=== PATIENT | male | born 1980 | race Caucasian/White ===

== ENCOUNTER 2019-09-06 11:13 | Inpatient (IN) | payer SELFPAY ==
[~2019-09-06] VITALS: Ht 180.3 cm; Wt 74.8 kg
[2019-09-06] MEDS ORDERED: NORCO 5-325 TA1 EACH PO (11:40)
--- NOTE | 2019-09-06 16:22 | NUR ---
RECEIVED REPORT FROM [facility] RIBBON CLEANER BRIAN. PT TO SURGERY FROM ER AT 1610.
--- NOTE | 2019-09-06 16:22 | NUR ---
OKAY TO CALL PTS GIRLFRIEND SACHA WITH UPDATES PHONE #: [phone]
--- NOTE | 2019-09-06 18:57 | NUR ---
KUSH CALLED FOR UDATE ON PT STATUS. INFORMED HER THE PT HAD NOT ARRIVED TO THE FLOOR YET BUT WOULD HAVE THE PRIMARY NURSE CALL HER ONCE PT DOES ARRIVE AND GET SETTLED.
--- NOTE | 2019-09-06 19:00 | NUR ---
PT STILL IN OR AT SHIFT CHANGE.
--- NOTE | 2019-09-06 19:31 | NUR ---
09/06/191930 Susy Beltran 190-PATIENT ARRIVED TO PACU ON 10L MASK REACTIVE TO VERBAL STIMULI OPENS EYES MOVING ARMS NOT FOLLOWING COMMANDS. RESPOSITIONING SELF TO LEFT SIDE. SULAIMAN DRAIN TO RLQ SEROUSANGUINOUS DRAINAGE WILL EMPTY DRESSING HAS SATURATED ON GAUZE. STERI STRIPS IN PLACE TO ABDOMEN. NG TUBE TO LEFT NARE LCS. ST RR INCREASED. 1909-PATIENT REPOSITIONING SELF IN BED ORIENTED TO SITUATION AND PLACE. PATIENT ON 8L MASK RR EVEN. 1919-PATIENT ON RA REACHING FOR MASK. O2 SATS DECREASE TO 88% ENCOURAGED DEEP BREATHING. REPORTS "CAN BREATHE BETTER NOW" DENIES PAIN. PATIENT REPORTS HAS TO LIE ON SIDE DUE TO RIBS. PER DR. POOLE GAUZE PLACED OVER SULAIMAN DRAIN. HOB ELEVATED. DENIES NAUSEA. PATIENT PLACED ON 2L OXYMASK. O2 SAT INCREASED TO 93%
--- NOTE | 2019-09-06 19:55 | NUR ---
PT ARRIVES TO FLOOR VIA STRETCHER, PT ABLE TO SCOOT HIMSELF TO BED. PT CONNECTED TO CPOX. NG TO SUCTION. GONZALEZ CATH IN PLACE. PT ORIENTED TO UNIT AND POC. IV FLUSHED, WNL. PT DENIES FURTHER NEEDS, AGREES TO USE CALL LIGHT FOR NEEDS.
--- NOTE | 2019-09-06 20:10 | NUR ---
SHIFT REPORT RECIEVED FROM BRENDEN MARTINEZ. PT RESTING IN BED. NO NEEDS AT THIS TIME. CALL LIGHT IN REACH.
--- NOTE | 2019-09-06 22:03 | NUR ---
ASSESSMENT COMPLETED.LAP SITES WNL, DRY, SANGUINOUS BLOOD. SULAIMAN WNL, SANGUINOUS BLOOD. IV WNL, CDI, FLUSHED WELL. IV FLUIDS INFUSING. SCHEDULED MEDS PROVIDED. LUNGS CLEAR. BOWEL TONES HYPOACTIVE. GONZALEZ WNL, CLEAR, YELLOW URINE. ABD MILDLY DISTENDED, TENDER. NG WNL, SCANT BROWN OUTPUT. USLAIMAN SITE DRESSING CHANGED. PAIN 3/10, DENIES NEED FOR PAIN INTERVENTION. NO OTHER NEEDS AT THIS TIME. CALL LIGHT IN REACH.
--- NOTE | 2019-09-06 23:09 | NUR ---
PT STATES HE HAS 5/10 ABD PAIN. PRN PAIN MED PROVIDED. NO OTHER NEEDS AT THIS TIME. CALL LIGHT IN REACH.
--- NOTE | 2019-09-06 23:27 | NUR ---
PT RESTING IN BED, EYES CLOSED. RR EVEN, UNLABORED. CPOX 96% RA. IV FLUIDS INFUSING. NG LOW INTERMITTENT. LISA WNL. CALL LIGHT IN REACH.
--- NOTE | 2019-09-07 01:15 | NUR ---
PT RESTING IN BED, EYES CLOSED. RR EVEN, UNLABORED. IV FLUIDS INFUSING PER ORDER. CALL LIGHT IN REACH.
--- NOTE | 2019-09-07 01:55 | NUR ---
SCHEDULED MED PROVIDED. PT REPORTS 4/10 PAIN BUT DECLINE PAIN MANAGEMENT INERVENTIONS INCLUDING HEAT/COLD PACKS, WARM BLANKETS, MEDICATION AND REPOSITIONING. VS AND I&O COMPLETED BY PRINCESS STALEY. SULAIMAN AND LISA MEDINAIED. NO OTHER NEEDS. CALL LIGHT IN REACH.
--- NOTE | 2019-09-07 03:54 | NUR ---
PT RESTING IN BED, EYES CLOSED. RR EVEN, UNLABORED. IV FLUIDS INFUSING PER ORDER. CALL LIGHT IN REACH.
--- NOTE | 2019-09-07 05:36 | NUR ---
PT CALLS TO STATE HE IS IN 5/10 PAIN. PRN PAIN MEDS PROVIDED. ASSESSMENT COMPLETED. SITES WNL, DRY SANGUINOUS. GODFREY WNL, SANGUINOUS. PT PAIN ALSO IN BACK AND LEFT SHOULDER. PT DENIES PASSING GAS YET. BOWEL TONES ACTIVE. GONZALEZ WNL, YELLOW URINE. NG LOW INTERMITENT WITH SCANT, BROWN DRAINAGE. PT REPORTS THROAT IRRITATION FROM NG, LEMON SWABS PROVIDED.SCDs IN PLACE. IV WNL, CDI, FLUSHED WELL. LUNG CLEAR. ABD SOFT, TENDER. NO OTHER NEEDS AT THIS TIME. CALL LIGHT IN REACH.
--- NOTE | 2019-09-07 06:07 | NUR ---
SCHEDULED MED PROVIDED. VS AND I&O COMPLETED. ICE CHIPS PROVIDED WITH THE UNDERSTANDING TO SPIT OUT WATER TO HELP WITH THROAT IRRITATION. NO OTHER NEEDS AT THIS TIME. CALL LIGHT IN REACH.
--- NOTE | 2019-09-07 07:15 | NUR ---
Report received, orders acknowledged. Patient laying in bed, rouses easily to voice. NG tube connected to LIWS. Patient reports pain of 5/10, which is acceptable. Denies nausea. No needs at this time, call light within reach.
--- NOTE | 2019-09-07 08:45 | NUR ---
Patient laying in bed with eyes closed, rouses easily to voice. AM medications administered, assessment complete. Patient reports pain of 7/10, prn pain medication given (see MAR). NG tube in place connnected to LIWS. Patient abdomen tender with active bowel tones in all four quadrants. Lap sites covered with steri strips. Jez drain in place on RLQ, draining serosanguinous fluid. Ice chips refreshed, patient denies further needs at this time. Call light within reach.
--- NOTE | 2019-09-07 09:47 | NUR ---
PATIENT IN BED. DR IN ROOM. CALL LIGHT IN REACH. NO FURTHER NEEDS AT THIS TIME.
--- NOTE | 2019-09-07 10:00 | NUR ---
Patient reports pain of 5/10, prn pain medication given (see MAR). Kevin D/C'd, NG tube D/C'd. D5LR infusing at 100 mls/hr. Patient denies further needs at this time. Call light within reach.
--- NOTE | 2019-09-07 11:00 | NUR ---
Patient up ambulating hallway X2. Pillow to splint abdomen, fluids running at 100 mls/hr. Patient reports increased pain of 8/10 after ambulation but states "the movement of getting up and down from bed is what hurts the most." Plan to order clear liquid tray since NG tube removed, will monitor how patient tolerates. Ice pack provided for right shoulder, which patient states "it hurts, feels like gas is up there." Denies further needs at this time, call light within reach.
--- NOTE | 2019-09-07 12:11 | OR ---
[facility] [address] [place], [place] [address] Signed DATE OF OPERATION: 09/06/2019 SURGEON: Isamar Poole MD PREOPERATIVE DIAGNOSIS: Perforated peptic ulcer. POSTOPERATIVE DIAGNOSIS: Perforated duodenal ulcer, bulbar portion at pylorus. PROCEDURE: 1. Laparoscopic peritoneal lavage and drainage. 2. Laparoscopic Jesus patch (application if omental pedicle). ANESTHESIA: General endotracheal, Isamar Preston CRNA, and local 10 mL of 0.25% Marcaine with epinephrine. INDICATION: This 38-year-old white man has had epigastric pain for several weeks, suspicious of possible ulceration. He did take Tums, which was of no benefit and decided to take a home remedy of capsaicin pills. He had the onset of very severe pain today and presented to the emergency room, where he was evaluated by Dr. Adithya Edmonds, showing peritonitis and a CT scan performed which showed findings highly consistent with perforated ulcer. My review shows peritoneal fluid, particularly in the right paracolic gutter and pelvis and in the periduodenal area. He has been fluid resuscitated, given broad-spectrum antibiotic, meropenem and is to undergo laparoscopy and possible laparotomy for remedy of perforated viscus, most likely duodenal ulcer. The risks of bleeding, infection, need for open procedure, and other unforeseen complications were reviewed with him in detail. He understands and wished to proceed. Of special note, the patient does smoke. He has no documented history of ulcer in the past. He has no family history of gastric cancer. FINDINGS: Significant peritonitis was noted of the abdominal wall and fibrinous bile-stained debris noted along the paracolic gutter and down into the pelvis. Similar staining was noted of the undersurface of the liver and the gallbladder. He was ultimately found indeed to have a perforated duodenal ulcer, which appeared to be at the pylorus itself in the anterior superior aspect. Ultimately a Jesus patch was applied after Electronically Signed By: ISAAMR POOLE MD 09/07/19 1211 PATIENT NAME: ROSCOE AGUILERA OPERATIVE REPORT DATE OF : 82 REPORT #: [id number] PHYSICIAN: ISAMAR POOLE MD PCP: NO PRIMARY CARE PHYSICIAN REPORT IS CONFIDENTIAL AND NOT TO BE RELEASED WITHOUT AUTHORIZATION [facility] [address] [place] [id number] Signed mobilization of a viable omental pedicle from omental graft. The peritoneal cavity was copiously irrigated free of the fibrinous exudate, debris, and bile. A leak test showed no sign of air leak at the site of the repair. The operation was difficult. DESCRIPTION OF PROCEDURE: The patient was brought to the operating room and given a general endotracheal anesthetic. I passed a nasogastric tube in the emergency room as staff was unable to do so. Stomach was evacuated prior to operation. He underwent intubation without incident. Preoperative antibiotic, meropenem was given. Sequential compression device stockings were used and Pepcid intravenously administered. The abdomen was clipped and prepared with a chlorhexidine solution after placement of a Kevin catheter. An infraumbilical incision was made and using an open Di cannula technique, pneumoperitoneum was achieved to a level of 14 mmHg with carbon dioxide gas. Intraabdominal inspection showed considerable inflammatory changes in the peritoneal cavity including fibrinous exudate, which was bile-stained along the right paracolic gutter and over the liver and in the region of the gallbladder. A 10 mm epigastric port was placed and ultimately 2 separate 5 mm ports in the right midclavicular and right anterior axillary line. Gentle irrigation was undertaken in the upper abdomen. There was adherent omentum in the subhepatic space. This was gently withdrawn and revealed was a perforated duodenum in the region of the pylorus itself. The defect was probably 5 mm to 10 mm at most. Free flow of bile was noted from that site. Irrigation was undertaken to assess the viability of the tissue. He did have edema and some stiffness of the duodenum itself, as would be expected. The tissue appeared viable to hold suture however. The gallbladder was elevated cephalad and retracted and fixed into place to provide better exposure of the duodenum. Attention was turned toward providing for an omental pedicle for Jesus patch. This was carefully done by mobilizing a segment of the omentum attached to the greater curvature of the stomach. Care was taken to mobilize enough where there would be no tension on a Jesus patch repair of the duodenal defect. Using a laparoscopic technique of 0 silk sutures, sutures were placed on each side of the perforation. The omental pedicle graft was placed directly over the defect and the sutures secured laparoscopically. Additional leakage was noted and therefore 2 additional sutures were used to apply the omentum more fully. This appeared to completely occlude the leak. Notably, the omentum itself was within the defect. The defect was not closed and a true Jesus patch was applied. Electronically Signed By: ISAMAR POOLE MD 09/07/19 1211 PATIENT NAME: ROSCOE AGUILERA OPERATIVE REPORT DATE OF : 82 REPORT #: [id number] PHYSICIAN: ISAMAR POOLE MD PCP: NO PRIMARY CARE PHYSICIAN REPORT IS CONFIDENTIAL AND NOT TO BE RELEASED WITHOUT AUTHORIZATION [facility] [address] [place] [address] [place], [place] [address] Signed Irrigation was undertaken more fully. There appeared to be no evidence of bile leak. The upper abdomen was submerged in saline and the director of volunteer services applied multiple syringes of air through the nasogastric tube, distending the stomach quite markedly as expected. There was no evidence of leak at the perforation site and the repair was considered complete. The nasogastric tube was returned to suction and more irrigation and lavage of the abdominal cavity was undertaken freeing the fibrinous peel particularly along the right paracolic gutter and the pelvis more fully. Through the right-sided trocar site, a 7 mm flat Jez drain was placed in the subhepatic space. Retraction was taken off the gallbladder, it was unharmed and although inflamed secondarily did not appear to have a primary problem itself. The drain was secured to the skin with nylon suture. It was later attached to bulb suction. Withdrawal of the trocars showed no sign of bleeding. The infraumbilical fascial incision was reapproximated with interrupted 0 Vicryl suture. The skin was then closed with interrupted 3-0 Vicryl. Steri-Strips were applied. A 10 mL of 0.25% Marcaine with epinephrine was injected into the fascial layer at the trocar sites. The patient was ultimately extubated and per COVID-19 protocol remained in the operating room for 14 minutes post extubation. The operation was rather prolong, complicated, and difficult. It was accomplished safely and with good clinical result. MD CRISTOBAL Rivera/EMERY /[id number] cc: Adithya Edmonds MD Copies: ~ Electronically Signed By: ISAMAR POOLE MD 09/07/19 1211 PATIENT NAME: ALEROSCOE OPERATIVE REPORT DATE OF : 82 REPORT #: [id number] PHYSICIAN: ISAMAR POOLE MD PCP: NO PRIMARY CARE PHYSICIAN REPORT IS CONFIDENTIAL AND NOT TO BE RELEASED WITHOUT AUTHORIZATION
--- NOTE | 2019-09-07 12:11 | HP ---
[facility] [address] [place], [place] [address] Signed ADMISSION DATE: 09/06/2019 TIME: 3:40 p.m. PROBLEM: Probable perforated duodenal ulcer. HISTORY OF PRESENT ILLNESS: This 38-year-old white man, who has had persistent epigastric burning-type pain for a number of months. He is under a fair amount of stress for the past 7 months, having lost his home and getting divorce. He lives in the [facility] now with his parents. He tried a Lithuanian home remedy for ulcer treatment, which included cayenne pepper tablets. This did not help him. He had previously tried Tums. At about 2 o'clock today, he said he had rather severe and unrelenting epigastric pain. He presented to the emergency room, was evaluated by Dr. Edmonds, where he was found to have a white count of 22,000 and marked tenderness of the abdomen. A CT scan was performed, which showed free air and findings highly suggestive of a perforated ulcer. Though it was initially interpreted as a "gastric ulcer," my review shows it likely to be a pyloric perforation at the pylorus itself. His other medical issues include history of right inguinal hernia repair in the past. He does smoke on a daily basis. He is not known to have ulcer disease in the past. 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 He has no children. He is in the process of a divorce. PHYSICAL EXAMINATION: GENERAL: Relatively thin white man, who looks quite uncomfortable. HEENT: Mucous membranes are slightly dry. Trachea is midline. He is receiving IV fluids and soon to get IV antibiotics. CHEST: Shows no evidence of tachypnea. ABDOMEN: He has marked tenderness in the epigastric area. EXTREMITIES: Show no clubbing, cyanosis, or edema. LABORATORY DATA: White count is 22,000. Other labs are appeared reasonably normal. I have reviewed the CT scan in detail, which confirms fluid in the abdomen, but also an edematous pylorus, some periduodenal air, a distended gallbladder, and free air near the end of the duodenum. This is in the coronal view. The axial views show free air lateral and Electronically Signed By: ISAMAR POOLE MD 09/07/19 1211 PATIENT NAME: ROSCOE AGUILERA HISTORY AND PHYSICAL DATE OF : 82 REPORT #: [id number] PHYSICIAN: ISAMAR POOLE MD PCP: NO PRIMARY CARE PHYSICIAN REPORT IS CONFIDENTIAL AND NOT TO BE RELEASED WITHOUT AUTHORIZATION [facility] [address] [place], [place] [address] Signed inferior to the gallbladder fossa, edema of the antrum of the stomach, some gastric contents. ASSESSMENT: The patient has perforated ulcer, likely related to pyloric channel ulcer. His rationale for taking cayenne pepper tablets for remedy is uncertain, but almost certainly a perforation as noted as free air is noted beneath the liver edge and an area suggestive of perforated ulcer is noted. I would recommend laparoscopy, evaluation for perforated duodenal ulcer and likely a Jesus patch if that is the source of the problem. If this represents actually a perforated gastric ulcer proper, he will need a laparotomy and other remedy. The risks of bleeding, infection, need for open procedure, need for other indicated procedures reviewed in detail. He understands and wished to proceed. I have told him I will attempt to pass a nasogastric tube as it has been unsuccessful in the emergency room. 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 If necessary, an orogastric tube might be needed. MD CRISTOBAL Rivera/GABRIELLAL /[id number] cc: Adithya Edmonds MD Copies: ~ Electronically Signed By: ISAMAR POOLE MD 09/07/19 1211 PATIENT NAME: ROSCOE AGUILERA HISTORY AND PHYSICAL DATE OF : 82 REPORT #: [id number] PHYSICIAN: ISAMAR POOLE MD PCP: NO PRIMARY CARE PHYSICIAN REPORT IS CONFIDENTIAL AND NOT TO BE RELEASED WITHOUT AUTHORIZATION
--- NOTE | 2019-09-07 13:00 | NUR ---
Patient ambulating hallways independently with steady gait, fluids infusing.
--- NOTE | 2019-09-07 14:15 | NUR ---
Patient reports pain of 7/10 after ambulation, prn pain medication (see MAR). Denies further needs at this time, call light within reach.
--- NOTE | 2019-09-07 14:30 | NUR ---
MED REC COMPLETED
--- NOTE | 2019-09-07 14:32 | NUR ---
PATIENT UP TO BATHROOM AND BACK TO BED, IND. PATIENT COMPLAINING OF PAIN, RN NOTIFED. CALL LIGHT IN REACH. NO FURTHER NEEDS AT THIS TIME.
--- NOTE | 2019-09-07 15:46 | NUR ---
Pt resting in his bed and he denies any needs at this time and states his pain is tolerable and needs nothing for it.
--- NOTE | 2019-09-07 16:45 | NUR ---
Patient reports pain of 7/10, prn pain medication given. Patient reports feeling anxious, increased respiratory rate in the 20's. Dr. Garcia notified of patient's anxiety. Orders acknowledged.
--- NOTE | 2019-09-07 18:02 | NUR ---
Patient laying in bed watching tv. Fluids running at 100 mls/hr. Patient reports nausea relieved from medication, pain remains a 5/10 but is tolerable. Denies needs at this time, call light within reach.
--- NOTE | 2019-09-07 18:35 | NUR ---
PATIENT IN BED RESTING, RN IN ROOM. CALL LIGHT IN REACH. NO FURTHER NEEDS AT THIS TIME.
--- NOTE | 2019-09-07 18:38 | NUR ---
Patient reports pain of 7/10, prn pain medication given. Prn anti-anxiety medication given. Patient denies further needs, call light within reach.
--- NOTE | 2019-09-07 19:46 | NUR ---
REPORT RECEIVED FROM YAMILET CASTELLANOS RN. PT LYING IN BED RESTING WITH EYES CLOSED, NAD. SPO2 94% ON RA, RR EVEN AND UNLABORED. IVF INFUSING. CALL LIGHT IN REACH. WHITE BOARD UPDATED.
--- NOTE | 2019-09-07 20:49 | NUR ---
STRAWHAT SIZER ROUNDING NOTE. PT UP TO USE THE BATHROOM, REPORTS INCREASED PAIN, REQUESTS PRN PAIN MEDICATION, SEE EMAR. PT DENIES QUESTIONS OR CONCERNS AT THIS TIME. CALL LIGHT IN REACH. WHITE BOARD UPDATED.
--- NOTE | 2019-09-07 22:10 | NUR ---
CALL LIGHT ANSWERED. PT WALKING BACK TO BED FROM BR INDEPENDENTLY. PT REPORTING 7/10 ABD PAIN AND HAVING "A LOT" OF ANXIETY. PT FRUSTRATED STATING "NOTHING YOU GUYS ARE DOING IS FUCKING HELPING ME, I'M LEAVING TOMORROW". PT ALSO STATES THAT HE WAS FRUSTRATED WITH THIS RN BECAUSE HE WAS NOT AWAKENED TO RECEIVE PRN MORPHINE. THIS RN ATTEMPTED TO EXPLAIN THAT WHILE PAIN CONTROL IS IMPORTANT TO HIS HEALING, HE WOULD NEED TO REQUEST PRN NEEDED AND THAT IV MORPHINE WAS NOT SCHEDULED. PT STATES "I CAN HAVE IT EVERY THIRTY MINUTES BUT I HAVE BEEN PUSHING IT OUT FOR OVER AN HOUR". PT ALSO STATES THAT NURSING STAFF COMES IN AND "DOES WHAT EVER THEY FUCKING WANT WITHOUT EXPLAINING IT TO ME". THIS RN AT BEDSIDE TO TALK TO AND REASSURE PT, QUESTIONS ANSWERED. ANTI-ANXIETY AND PRN PAIN MEDICATION REQUESTED. PIV INFILTRATED. DC'D WNL, TIP IN TACT. TWO ATTEMPTS TO PLACE NEW PIV BY THIS RN. [employer] CALLED.
--- NOTE | 2019-09-07 23:30 | NUR ---
PRN ANTI-ANXIETY AND PRN PAIN GIVEN PER REQUEST. EVENING ASSESSMENT COMPLETE. SCHEDULED MEDS GIVEN AT THIS TIME. XIMENA DRAIN EMPTIED OF 50 ML SEROSANGUINOUS DRAINAGE. LAP SITES INTACT, NO REDNESS OR WARMTH NOTED. BOWEL TONES ACTIVE. PT REPORTS HE HAS PASSED GAS. C/O UPPER LEFT SHOULDER PAIN CAUSED "FROM THE GAS DURING SURGERY", REFUSES TO AMB AT THIS TIME. IV ABX INFUSING. PT REQUESTING TO NOT BE DISTRUBED FOR A WHILE HE HAS "NOT SLEPT SINCE HE GOT HERE". INSTRUCTED PT TO USE NURSE CALL LIGHT FOR ANY NEEDS.
--- NOTE | 2019-09-08 01:25 | NUR ---
PT RESTING IN BED WITH EYES CLOSED, NAD. RESPIRATIONS EVEN AND UNLABORED. CALL LIGHT IN REACH.
--- NOTE | 2019-09-08 03:30 | NUR ---
IV ABX COMPLETE. PT REQUESTING PRN FOR ABD PAIN. MEDICATED PER ORDER. PT UP TO BR WITH MINIMAL ASSIST TO VOID 450 ML CL YELLOW URINE. BACK TO BED, FATOU WELL. SCD'S APPLIED. PT REQUESTING PRN FOR ANXIETY HE WILL NOT BE ABLE TO SLEEP WITH SCD'S ON AND THAT WILL INCREASE HIS ANXIETY. INFORMED PT HE IS ABLE TO REFUSE ANY TREATMENT, PT STATES HE "WANTS TO BE A GOOD PATIENT". NO FURTHER NEEDS AT THIS TIME. CALL LIGHT IN REACH.
--- NOTE | 2019-09-08 04:23 | NUR ---
PT LYING IN BED WITH EYES CLOSED, APPEARS TO BE SLEEPING. RESPIRATIONS EVEN AND UNLABORED. CALL LIGHT IN REACH
--- NOTE | 2019-09-08 06:27 | NUR ---
PT UP TO BR WITH LITTLE ASSIST. BACK TO BED, FATOU FAIR. PT HAD ABOUT 50 ML BILE COLORED EMESIS. PRN N/V GIVEN. MEDICATED FOR 7/10 ABD PAIN. 30 ML EMPTIED FROM XIMENA DRAIN. DRAINAGE NOTED TO HAVE A CLOUDY, YELLOW TINGE.
--- NOTE | 2019-09-08 06:47 | NUR ---
DR. POOLE CALLED TO UPDATE ON CHANGE IN COLOR OF XIMENA DRAINAGE WELL PT'S PAIN AND ANXIETY. NEW TELEPHONE ORDERS RECEIVED, VERIFIED WITH READ BACK METHOD.
--- NOTE | 2019-09-08 07:00 | NUR ---
Report received, orders acknowledged.
--- NOTE | 2019-09-08 07:15 | NUR ---
Lab in room to draw blood. IV toradol given. Patient laying in bed with pillow over face during blood draw. Denies needs at this time, call light within reach.
--- NOTE | 2019-09-08 09:15 | NUR ---
Patient up to toilet, voiding quantity sufficient. SULAIMAN drain emptied, 30 mls of serosanguinous fluid. AM medications given, vital signs taken. Assessment complete. Patient reports pain in abdomen is a 4/10, which is acceptable. Denies nausea. LR infusing at 100 mls/hr. New linens provided. Patient drinking chocolate ensure due to poor appetite. Denies further needs at this time, call light within reach.
--- NOTE | 2019-09-08 12:00 | NUR ---
Patient sleeping in bed, respirations even and unlabored. Rouses easily to voice. Denies lunch order, would like to continue sleeping. Request is obliged. Call light within reach.
--- NOTE | 2019-09-08 13:30 | NUR ---
Dr. Garcia in room to discuss POC with patient.
--- NOTE | 2019-09-08 13:45 | NUR ---
Patient stating desire to leave hospital AMA. Patient is highly anxious, with increased respirations. Patient states "I'm out of here" and puts hat on. Dr Garcia offers to speak with support system and emphasizes importance of patient staying one more night to heal. 2mg PO ativan given. Patient agreeable to staying in hospital at moment. 1415 - grinding supervisor in patient room to speak with patient regarding desire to leave AMA. POC developed with patient with cluster care and minimal interruptions during stay. Patient agreeable to this POC.
--- NOTE | 2019-09-08 15:19 | NUR ---
AFTER PATIENT TOOK A SHOWER HE WALKED 2 LAPS AROUND [facility].
--- NOTE | 2019-09-08 17:26 | NUR ---
Patient sleeping in bed, respirations even and unlabored. Call light within reach.
--- NOTE | 2019-09-08 17:45 | NUR ---
Patient sleeping in bed with lights off and blinds drawn. Rouses easily to voice. PM medications given, vital signs taken. Patient reports pain of 5/10, prn pain medication given (see MAR). POC for the night discussed with patient, will relay patient's wishes to oncoming RN. Denies further needs at this time, call light within reach.
--- NOTE | 2019-09-08 19:33 | NUR ---
REPORT RECEIVED FROM DAY SHIFT RN. PT LYING IN BED, ALERT AND ORIENTED. PT IS WEARING STREET CLOTHES. FULL LIQUID TRAY PROVIDED. NO FURTHER NEEDS AT THIS TIME. CALL LIGHT IN REACH.
--- NOTE | 2019-09-08 20:10 | NUR ---
IN TO PT ROOM TO ADMINISTER SCHEDULED MED. PT IN BED WITH HAT OVER FACE, RESTING. RESPIRATIONS EVEN AND UNLABORED. PT NOT DISTURBED AT THIS TIME.
--- NOTE | 2019-09-08 21:10 | NUR ---
IN TO ADMINISTER MEDS. DISCUSSED WITH PT HIS EXPECTATIONS OF CARE FOR THE EVENING. AGREED TO MINIMALLY DISTURB PT. PT AGREED TO USE NURSE CALL LIGHT FOR PAIN MEDICATION. ASSESSMENT COMPLETE. I&O COMPLETE. LAP SITES INTACT, NO REDNESS OR SWELLING NOTED. XIMENA DRAIN EMPTIED OF SEROSANGUINOUS DRAINAGE. PT REMAINS IN STREET CLOTHES, REFUSED HOSPITAL PANTS. PRN GIVEN FOR ANXIETY. REFUSED PRN PAIN MEDICATIONS AT THIS TIME. FRESH WATER GIVEN. NO FURTHER NEEDS. CALL LIGHT IN REACH.
--- NOTE | 2019-09-08 23:15 | NUR ---
REST OF EVENING MEDS ADMINISTERED. PRN GIVEN FOR ABD PAIN. PT DENIES FURTHER NEEDS. CALL LIGHT IN REACH.
--- NOTE | 2019-09-09 03:09 | NUR ---
SCHEDULED MEDS ADMINISTERED. PRN GIVEN FOR ANXIETY AND C/O 5/10 ABD PAIN. XIMENA DRAIN EMPTIED. FRESH WATER GIVEN.
--- NOTE | 2019-09-09 06:36 | NUR ---
PT RESTING IN BED WITH HAT OVER FACE. PRN GIVEN FOR ABD PAIN. XIMENA DRAIN EMPTIED. ASSESSMENT DEFERRED. PT DENIES FURTHER NEEDS. CALL LIGHT IN REACH.
--- NOTE | 2019-09-09 08:21 | NUR ---
PT AWKAE AND ALLOWED STAFF TO COMPLETE ASSESSMENT, PT IS DRESS IN PERSOANL CLOTHING, SULAIMAN DRAIN REMAIN INTACK AND DRAINING SS FLUIDED. PLACED NICOTINE PATCH ON PT AND GAVE 2MG PO ATAVIN. PT IS UP AND ABOUT IN THE ROOM, TALKING TO SELF AND IS WILLING TO ANSWER QUESTIONS.
--- NOTE | 2019-09-09 08:25 | NUR ---
PT DOES NOT WANT ANY BKF AT THIS TIME, BUT IS TAKING PO WATER WITH NO ICE.
[2019-09-09] MEDS ORDERED: METRONIDAZOLE250 MG PO (08:44)
[2019-09-09] MEDS ORDERED: AMOXICILLIN500 MG PO (08:44)
[2019-09-09] MEDS ORDERED: NICOTINE PATCH1 EAC1 TD (08:44)
[2019-09-09] MEDS ORDERED: OXYCODON-ACETA1 EAC2 PO (08:45)
[2019-09-09] MEDS ORDERED: SUCRALFATE1 GM PT (08:45)
[2019-09-09] MEDS ORDERED: PEPTO-BISMOL262 MG PO (08:45)
[2019-09-09] MEDS ORDERED: TYLENOL EXTRA500 MG PO (08:45)
--- NOTE | 2019-09-09 08:48 | NUR ---
DR POOLE INTO SEE PT AND DISCHARGE TO HOME ORDERS RECEIVED. DR NOBLES REMOVED SULAIMAN DRAIN WITHOUT ANY ISSUES.
--- NOTE | 2019-09-09 08:58 | NUR ---
PT STATES THAT HIS GIRLFREIND WILL COME AND PICK HIM UP.
--- NOTE | 2019-09-09 09:35 | NUR ---
pt ambulated to front of the hospital with nursing staff. pt ride was waiting at the door for him.
--- NOTE | 2019-09-09 10:02 | NUR ---
DISCUSSED WITH PT DID NOT HAVE A PPI ORDER FOR DISCHARGE, SAID HE NEEDS IT, GAVE ORDER ANTOINE PHARM WILL CALL TO [facility].
--- NOTE | 2019-09-10 08:40 | DS ---
[facility] [address], [place] [address] Signed ADMISSION DATE: 09/06/2019 DISCHARGE DATE: 09/09/2019 REASON FOR ADMISSION: This 38-year-old white man lives in the [place], [place] area and presents to the emergency room with severe exacerbation of longstanding epigastric pain. He had a clinical findings of peritonitis and was evaluated by Dr. Edmonds, which included a CT scan. This showed free intraperitoneal air, intraperitoneal fluid, and findings consistent with perforated peptic ulcer. He is admitted for further evaluation and care. PERTINENT PHYSICAL EXAMINATION: GENERAL: Showed a thin, anxious white man, who was in marked distress. CHEST: Clear. HEART: Regular. ABDOMEN: He had marked tenderness in epigastric area. LABORATORY DATA: His white count was 22,000. HOSPITAL COURSE: He was given emergent fluid resuscitation and broad-spectrum antibiotic, meropenem and taken urgently to operation, where he underwent laparoscopy and was confirmed to have a perforated duodenal ulcer at the pylorus. Operation consisted of Jesus patch of the perforation with water testing showing no sign of continued leak and copious peritoneal lavage and irrigation and removal of fibrinous debris along the right paracolic gutter and subhepatic space and elsewhere. A drain was placed. Postoperatively, he had much improvement clinically regarding his pain. He had rather severe anxiety requiring Ativan, which is an underlying issue of his apparently. He was treated as if he had H pylori infection, though it could not be tested with serologic means as the hospital does not offer a serologic H pylori test at this time. He had several episodes of threatening to leave against medical advice due to his anxiety, but it was managed well with Ativan. By day of discharge, he is tolerating a full liquid diet, also his antiulcer regimen and has been abstinent of tobacco use and nicotine patch. He is admonished to avoid smoking, to continue with his antiulcer medication regimen, and we will plan to see him back in a month or so. We would ultimately recommend upper endoscopy to assess for complete healing and to further assess for H pylori. He is advised to lift no more than 20 pounds for the next 2 weeks. He is permitted to shower and to keep Steri-Strips on. The drain has been removed. DISCHARGE MEDICATIONS: Electronically Signed By: ISAMAR POOLE MD 09/10/19 0840 PATIENT NAME: ROSCOE AGUILERA DISCHARGE SUMMARY DATE OF : [birth year] REPORT #: [id number] PHYSICIAN: ISAMAR POOLE MD PCP: NO PRIMARY CARE PHYSICIAN REPORT IS CONFIDENTIAL AND NOT TO BE RELEASED WITHOUT AUTHORIZATION [facility] [address], [place] [address] Signed Include: 1. Amoxicillin 500 mg p.o. b.i.d., #28. 2. Flagyl 250 p.o. t.i.d. with meals, #42. 3. Nicotine patch 21 mg topically each day, #30, refill 2. 4. Percocet 7.5/325 two tablets p.o. q.6 hours p.r.n. severe pain. Advised to discontinue his [place] that he had previously. 5. Tylenol Extra Strength 500 mg two tablets p.o. q.6 hours p.r.n. pain, #60. 6. Pepto-Bismol tablet 524 mg p.o. q.i.d., #60. 7. Sucralfate 1 g p.o. q.i.d. on empty stomach, #100. DISCHARGE DIAGNOSES: 1. Perforated duodenal ulcer, status post laparoscopic Jesus patch repair and medical treatment for ulcer. 2. Severe anxiety disorder. 3. Nicotine use. MD CRISTOBAL Rivera/GABRIELLAL /[id number] cc: Adithya Edmonds MD Copies: ~ Electronically Signed By: ISAMAR POOLE MD 09/10/19 0840 PATIENT NAME: ROSCOE AGUILERA YEMI DISCHARGE SUMMARY DATE OF : 82 REPORT #: [id number] PHYSICIAN: ISAMAR POOLE MD PCP: NO PRIMARY CARE PHYSICIAN REPORT IS CONFIDENTIAL AND NOT TO BE RELEASED WITHOUT AUTHORIZATION
== END 2019-09-09 09:15 | disposition home or self-care (01) | DRG 331 ==
LOC: ED 11:13 → MS 16:04
PROVIDERS: ADMIT Surgery
PROC: 3E1M38Z Irrigation of Peritoneal Cavity using Irrigating Substance, Percutaneous Approach (ICD-10-PCS; 2019-09-06)
PROC: 0DU947Z Supplement Duodenum with Autologous Tissue Substitute, Percutaneous Endoscopic Approach (ICD-10-PCS; principal; 2019-09-06 16:00)
DX: K26.5 Chronic or unspecified duodenal ulcer with perforation (principal); F41.9 Anxiety disorder, unspecified; F17.200 Nicotine dependence, unspecified, uncomplicated
CPT/HCPCS: 00790; 36415; 71045; 74177; 74340; 80048; 80053; 83690; 85025; C9113; J0131; J1100; J1170; J1644; J1885; J2060; J2185; J2250; J2270; J2405; J2704; J2765; J3010; J7030; J7121; Q9967